=== PATIENT | female | born 1945 | race Caucasian/White ===

== ENCOUNTER 2021-01-04 17:00 | Inpatient (IN) | payer MEDICARE, BC ==
[~2021-01-04] VITALS: Ht 157.5 cm; Wt 64.3 kg
[2021-01-04] MEDS ORDERED: FENTANYL PF 100 MCG/2ML ONE (17:02)
[2021-01-04] MEDS ORDERED: VERAPAMIL 2.5 MG/ML, 2ML ONE (17:02)
[2021-01-04] MEDS ORDERED: BIVALIRUDIN 250 MG ONE (17:02)
[2021-01-04] MEDS ORDERED: TICAGRELOR 90 MG TABLET ONE (17:02)
[2021-01-04] MEDS ORDERED: MIDAZOLAM 1 MG/ML, 5ML ONE (17:02)
[2021-01-04] MEDS ORDERED: LIDOCAINE 2%, 20ML ONE (17:03)
[2021-01-04] MEDS ORDERED: HEPARIN 1,000 UNITS/ML, 10ML ONE (17:03)
--- NOTE | 2021-01-04 17:15 | NUR ---
LATE ENTRY FOR 171: PT TRANSFERRED FROM [facility] TO [facility] WITH CONCERNS FOR STEMI. PT GROANING, INCONSOLEABLE, NOT FOLLOWING COMMANDS OR ANSWERING QUESTIONS ON ARRIVAL. REPORT TAKEN FROM EMS ON ARRIVAL. PER EMS, PT'S INITIAL COMPLAINT AT [facility] WAS EPIGASTRIC PAIN X 2 WEEKS. CODE CARDIAC CALLED ON ARRIVAL, PT WAS STEMI PRE-ALERT. ON ARRIVAL, ASSISTANT BASKETBALL COACH STEVEN AT BEDSIDE. REPEAT EKG TAKEN X 3, REVIEWED BY ASSISTANT BASKETBALL COACH STEVEN. CODE CARDIAC CANCELLED BY MD HARRIS, PT TOO MEDICALLY COMPLEX TO TAKE TO CASE MANAGEMENT ASSOCIATE, ALSO EKG IMPROVING PER MD. ALL MONITORS IN PLACE. PT RECEIVED ASPIRIN 324 MG WELFARE ADVISER PER FLOWER CUTTER. PT TO GO TO CT AFTER LABS, PER MD WADE CT DOES NOT NEED TO WAIT FOR LAB RESULTS, RESULTS FROM [facility] REVIEWED BY EDMD.
--- NOTE | 2021-01-04 17:24 | NUR ---
PT TO CT WITH THIS RN AT THIS TIME.
[2021-01-04] MEDS: ASPIRIN 81 MG TABLET CHEW PO ONE ×2 (17:30→17:35)
[2021-01-04] MEDS ORDERED: PLEASE ENTER ALLERGIES MC SCH (17:30)
[2021-01-04] MEDS ORDERED: PLEASE ENTER HEIGHT AND WEIGHT MC SCH (17:30)
[2021-01-04] MEDS ORDERED: SODIUM CHLORIDE 0.9% 1,000ML IVBOLUS ONE (17:30)
[2021-01-04 17:31] LABS: BASOPHILS % (AUTO) 1 % (0-1); EOSINOPHILS % (AUTO) 0 % (1-7); LYMPHOCYTES % (AUTO) 13 % (22-44); MEAN CORPUSCULAR HEMOGLOBIN 27.8 pg (27.0-34.8); MEAN CORPUSCULAR HGB CONC 33.3 g/dL (32.4-35.8); MEAN PLATELET VOLUME 7.5 fL (7.4-10.4); MONOCYTES % (AUTO) 8 % (2-9); NEUTROPHILS % (AUTO) 79 % (42-75); PLATELET COUNT 512 x10^3/uL (130-400); RED BLOOD COUNT 3.02 x10^6/uL (3.82-5.3); RED CELL DISTRIBUTION WIDTH 15.3 % (9.6-15.2)
[2021-01-04 17:39] LABS: INTERNATIONAL NORMALIZED RATIO 1.17 (0.93-1.1); PROTHROMBIN TIME 12.4 Seconds (9.6-11.5)
[2021-01-04 17:45] LABS: ALANINE AMINOTRANSFERASE 25 U/L (12-78); ANION GAP 6 mmol/L (5-15); CHLORIDE 99 mmol/L (98-107); CREATININE 1.01 mg/dL (0.55-1.02)
[2021-01-04 17:50] LABS: ALKALINE PHOSPHATASE 57 U/L (45-117); BILIRUBIN,TOTAL 0.4 mg/dL (0.2-1.0); TOTAL PROTEIN 6.1 g/dL (6.4-8.2)
--- NOTE | 2021-01-04 17:54 | NUR ---
lab notified trop 5.17, saurav orozco and admissions nurse rae notified. md mcbride reassessing pt at bedside.
[2021-01-04] MEDS ORDERED: OMNIPAQUE 350 MG/ML, 100ML BOTTLE ONE (17:59)
--- NOTE | 2021-01-04 17:59 | NUR ---
report to RONNY Martinez.
--- NOTE | 2021-01-04 18:00 | NUR ---
late entry for 1800: pt awake, alert, speech more clear. pt indicating epigastric pain, able to state name. following some commands. resps even and unlabored. sinus tach rate 110s on school lunch monitor with no ectopy. nitro drip discontinued on arrival per MD Pardo's instruction. bp maintained at this time.
--- NOTE | 2021-01-04 18:06 | NUR ---
BARBARA VALERIO [phone]. ASSUMING CARE OF PT AFTER BEDSIDE REPORT FROM CAROL ANN JEFFERSON
[2021-01-04] MEDS ORDERED: HYDROmorphone 2 MG/ML, 1ML ONE ×4 (18:19→19:47)
[2021-01-04] MEDS ORDERED: HYDROmorphone 1 MG/ML, 1ML INJ IV ONE (18:30)
--- NOTE | 2021-01-04 18:55 | NUR ---
REPORT RECIEVED FROM RONNY DAMICO. CARE ASSUMED AT THIS TIME. PT MOANING IN BED AND NOT SAYING WORDS OR FOLLOWING COMMANDS. REPROT FROM PREVIOUS NURSE STATES THIS HAS BEEN THE BASELINE SINCE BEING IN THE ER. VSS. AWAITING HEAPRIN DRIP AND COAG STATUS. PT RESTING ON STRETCHER.
[2021-01-04] MEDS ORDERED: BISACODYL 10 MG SUPP PR PRN (19:00)
[2021-01-04] MEDS ORDERED: ONDANSETRON 2MG/ML, 2ML IVPush PRN (19:00)
--- NOTE | 2021-01-04 19:10 | NUR ---
NOTIFIED SCREW MACHINE OPERATOR SINGLE SPINDLE PT CRITICAL ANTI-Xa AND PLAN IS TO NOT ADMINISTER HEAPRIN DRIP AND CONTROL HER PAIN AT THIS TIME. PT RIPPED OUT IV IN RIGHT HAND. BLEEDING CONTROLLED.
[2021-01-04] MEDS: HYDROmorphone 2 MG/ML, 1ML IVPush PRN ×2 (19:27→19:52)
[2021-01-04] MEDS ORDERED: LORazepam 2 MG/ML, 1ML ONE (19:59)
--- NOTE | 2021-01-04 20:11 | NUR ---
NOTIFIED PROVIDER OF TRENDING DOWN HEART RATE FROM 120-70BPM. MD AT BEDSIDE. HEART RATE STABLIZED AT 88BPM. WILL CONTINUE TO MONITOR PT. PT SLEEPING
--- NOTE | 2021-01-04 20:25 | NUR ---
PT SLEEPING. WILL CONTINUE TO MONITOR.
[2021-01-04] MEDS ORDERED: LORazepam 2 MG/ML, 1ML IV STA (21:00)
--- NOTE | 2021-01-04 21:29 | NUR ---
PT SLEEPING ON STRETCHER. PT APPEARS RELAXED AND IN MORE COMFORT THEN BEGINNING OF SHIFT. PT VSS STABLE. WILL CONTINUE TO MONITOR.
--- NOTE | 2021-01-04 21:54 | NUR ---
ATTEMPTED REPORT. NO ANSWER AT THIS TIME.
[2021-01-04] MEDS ORDERED: HEPARIN 25,000 UNITS/250ML PMX 250 ML IV PRN (22:00)
[2021-01-04] MEDS ORDERED: HEPARIN 5,000 UNITS/ML, 1ML IV ONE (22:00)
[2021-01-04] MEDS ORDERED: HEPARIN 5,000 UNITS/ML, 1ML IV PRN (22:00)
[2021-01-05 02:49] VITALS: BP 101/60
[2021-01-05] MEDS: HYDROmorphone 2 MG/ML, 1ML IVPush PRN ×5 (03:04→20:08)
[2021-01-05 05:51] LABS: BASOPHILS % (AUTO) 1 % (0-1); EOSINOPHILS % (AUTO) 1 % (1-7); LYMPHOCYTES % (AUTO) 11 % (22-44); MEAN CORPUSCULAR HEMOGLOBIN 27.5 pg (27.0-34.8); MEAN CORPUSCULAR HGB CONC 32.3 g/dL (32.4-35.8); MEAN PLATELET VOLUME 7.9 fL (7.4-10.4); MONOCYTES % (AUTO) 12 % (2-9); NEUTROPHILS % (AUTO) 76 % (42-75); PLATELET COUNT 517 x10^3/uL (130-400); RED BLOOD COUNT 3.11 x10^6/uL (3.82-5.3); RED CELL DISTRIBUTION WIDTH 15.6 % (9.6-15.2)
[2021-01-05 06:10] LABS: ANION GAP 9 mmol/L (5-15); CALCIUM 8.2 mg/dL (8.5-10.1); CHLORIDE 103 mmol/L (98-107); CHOLESTEROL, TOTAL 122 mg/dL (140-239); CREATININE 0.99 mg/dL (0.55-1.02)
[2021-01-05 06:14] LABS: HDL CHOLESTEROL (DIRECT) 47 mg/dL (40-60); TRIGLYCERIDES 111 mg/dL (50-200); VLDL CHOLESTEROL 22 mg/dL (0-25)
[2021-01-05 06:43] VITALS: BP 100/59
[2021-01-05 08:06] LABS: CHOL/HDL RATIO 2.6; HDL CHOL % 39 % (28-40); LDL CHOLESTEROL,CALCULATED 53 mg/dL (54-169); LDL/HDL RATIO 1.1 (0.5-3.0)
[2021-01-05 12:32] VITALS: BP 89/51
[2021-01-05 13:28] VITALS: BP 95/56
--- NOTE | 2021-01-05 14:10 | NUR ---
NPO - HEALTH SERVICES DIRECTOR PLACED SWALLOW PRECAUTION SIGN AT HOB Addendum: 01/05/21 at 1411 by Kristen BLAIR Amended: Links added.
[2021-01-05] MEDS ORDERED: D5%-0.45% NACL 1,000 ML IV SCH (16:30)
[2021-01-05] MEDS: LACTULOSE 20 GM/30 ML UDC NG SCH ×2 (18:00→21:00)
[2021-01-05] MEDS ORDERED: BISACODYL 10 MG SUPP PR PRN (18:00)
[2021-01-05 19:55] VITALS: BP 115/73
[2021-01-05 22:41] VITALS: BP 97/77
[2021-01-05] MEDS ORDERED: DILTIAZEM 5 MG/ML, 5ML IVPush ONE (23:00)
[2021-01-05] MEDS ORDERED: DIGOXIN 0.25 MG/ML, 2ML ONE (23:37)
[2021-01-05] MEDS ORDERED: MORPHINE SULFATE 4 MG/ML, 1ML ONE (23:43)
[2021-01-05] MEDS ORDERED: LORazepam 2 MG/ML, 1ML ONE (23:43)
[2021-01-06] MEDS ORDERED: LORazepam 2 MG/ML, 1ML IVPush ONE
[2021-01-06] MEDS ORDERED: SODIUM CHLORIDE 0.9% 1,000ML IVBOLUS ONE
[2021-01-06] MEDS ORDERED: morphine SULFATE 10 MG/ML, 1ML IVPush ONE
== END 2021-01-06 06:30 ==
LOC: ED 17:15 → EDIP 18:35 → 5SO 23:24
PROVIDERS: ADMIT Internal Medicine; ATTEND Hospitalist
DX: I21.3 ST elevation (STEMI) myocardial infarction of unspecified site (principal); U07.1 COVID-19; E87.1 Hypo-osmolality and hyponatremia; D68.69 Other thrombophilia; J98.11 Atelectasis; I10 Essential (primary) hypertension; Z90.710 Acquired absence of both cervix and uterus; Z87.891 Personal history of nicotine dependence; Z66 Do not resuscitate; Z79.01 Long term (current) use of anticoagulants; R09.02 Hypoxemia; E78.5 Hyperlipidemia, unspecified; I25.10 Atherosclerotic heart disease of native coronary artery without angina pectoris; R13.10 Dysphagia, unspecified; D64.9 Anemia, unspecified; K43.9 Ventral hernia without obstruction or gangrene; I46.9 Cardiac arrest, cause unspecified; R00.1 Bradycardia, unspecified; I95.9 Hypotension, unspecified; G93.89 Other specified disorders of brain
CPT/HCPCS: 36415; 70450; 71045; 71275; 74175; 80048; 80053; 80061; 80320; 82140; 83036; 83605; 84484; 85025; 85520; 85610; 85730; 93005; 96374; 96375; 99291; G0378; J0583; J1170; J1644; J2250; J2405; J3010; Q9967; G0480; J2060; J7030